=== PATIENT | male | born 1950 | race Caucasian/White ===

== ENCOUNTER 2019-10-02 09:38 | Emergency (ER) | payer OTHER ==
[2019-10-02 09:57] VITALS: BP 145/77
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
[2019-10-02] MEDS ORDERED: Tetan/Diph/Pertus SYR(Tdap)* 0.5 ML SYR(BOOSTRIX) use SYR contains LATEX IM ONE (10:08)
== END 2019-10-02 10:27 | disposition home or self-care (01) ==
LOC: UCEAST 09:38
DX: S51.851A Open bite of right forearm, initial encounter (principal); J45.909 Unspecified asthma, uncomplicated; Z87.891 Personal history of nicotine dependence; W50.3XXA Accidental bite by another person, initial encounter; Y92.9 Unspecified place or not applicable
CPT/HCPCS: 90715; 99212; G0463